=== PATIENT | female | born 1945 | race Caucasian/White ===

== ENCOUNTER 2024-01-12 15:44 | Outpatient (CLI) | payer MEDICARE, BC | END 2024-01-12 15:45 | disposition home or self-care (01) | LOC: CSHRAD 15:44 | PROVIDERS: ATTEND Family Medicine | DX: R05.9 Cough, unspecified (principal) | CPT/HCPCS: 71046 ==

== ENCOUNTER 2024-11-23 14:05 | Outpatient (CLI) | payer MEDICARE, BC | END 2024-11-23 14:06 | disposition home or self-care (01) | LOC: CSHMAMMO 14:05 | PROVIDERS: ATTEND Internal Medicine Rheumatology | DX: M81.0 Age-related osteoporosis without current pathological fracture (principal); M85.851 Other specified disorders of bone density and structure, right thigh; M85.852 Other specified disorders of bone density and structure, left thigh | CPT/HCPCS: 77080 ==

== ENCOUNTER 2024-11-23 15:10 | Outpatient (CLI) | payer MEDICARE, BC | END 2024-11-23 15:11 | disposition home or self-care (01) | LOC: CSHRAD 15:10 | PROVIDERS: ATTEND Internal Medicine Rheumatology | DX: M81.0 Age-related osteoporosis without current pathological fracture (principal) | CPT/HCPCS: 72070 ==